=== PATIENT | female | born 1955 | race Caucasian/White ===

== ENCOUNTER → 2023-07-02 11:03 | Outpatient (REF) | payer OTHER, SELFPAY | LOC: HWRAD 11:03 | PROVIDERS: ATTENDING PHYSICIAN Internal Medicine | DX: Z78.0 Asymptomatic menopausal state (principal); Z12.39 Encounter for other screening for malignant neoplasm of breast; Z12.31 Encounter for screening mammogram for malignant neoplasm of breast | CPT/HCPCS: 77063; 77067; 77080 ==

== ENCOUNTER 2024-07-04 23:46 | Emergency (ER) | payer OTHER, SELFPAY ==
[2024-07-04 23:48] VITALS: BP 150/88
[2024-07-05 00:17] LABS: % Basophils 0.4 % (0-2); % Eosinophils 2.5 % (0-6); % Immature Granulocytes 0.9 % (0-0.5); % Lymphocytes 36.6 % (20.5-51.1); % Monocytes 7.7 % (1.7-9.3); % Neutrophils 51.9 % (42.2-75.2); Absolute Eosinophils 0.2 10^3/uL (0-0.7); Absolute Immature Granulocytes 0.1 10^3/uL (0-0.05); Absolute Lymphocytes 2.9 10^3/uL (1.2-3.4); Absolute Monocytes 0.6 10^3/uL (0.1-0.6); Absolute Neutrophils 4.1 10^3/uL (1.4-6.5); Hematocrit 35.2 % (37.0-47.0); Hemoglobin 12.2 g/dL (12.0-16.0); Mean Corp Hgb Conc. 34.7 g/dL (33.0-37.0); Mean Corpuscular Volume 92.4 fL (81.0-99.0); Nucleated Red Blood Cells % 0 %; Platelet Count 196 10^3/uL (130-400); Red Blood Cell Count 3.81 10^6/uL (4.20-5.40); Red Cell Dist. Width 11.5 % (11.5-14.5)
[2024-07-05 00:23] LABS: Urine Albumin Negative (Neg - Trace); Urine Bilirubin Negative (Negative); Urine Character Clear (Clear); Urine Color Yellow; Urine Glucose Negative (Negative); Urine Ketone Negative (Negative); Urine Leukocyte Negative (Negative); Urine Nitrite Negative (Negative); Urine Occult Blood Negative (Negative); Urine Urobilinogen Negative (Neg - 1+); Urine pH 6.5 (5.0-9.0)
[2024-07-05 00:28] LABS: ALT (SGPT) 19 U/L (0-35); AST (SGOT) 22 U/L (14-36); Albumin 4.3 g/dl (3.5-5.0); Alkaline Phosphatase 49 U/L (38-126); Blood Urea Nitrogen 18 mg/dl (7-17); Calcium 9.6 mg/dl (8.4-10.2); Carbon Dioxide 25 mmol/L (22-30); Chloride 102 mmol/L (98-107); Glucose 98 mg/dl (70-99); Lipase 155 U/L (23-300); Sodium 134 mmol/L (135-145); Total Bilirubin 0.4 mg/dl (0.2-1.3); Total Protein 7.2 g/dl (6.3-8.2); eGFR > 60.00
--- NOTE | 2024-07-05 00:59 | ED.GENMED ---
History of Present Illness
General
Chief Complaint: Flank Pain
Time Seen by Provider: 07/05/24 00:54
History of Present Illness
History of Present Illness:
68-year-old female presenting with left flank pain starting 07/02. Patient denies nausea, vomiting, diarrhea, abdominal pain, dysuria or hematuria. Patient denies history of kidney stones. Patient denies any recent falls/trauma/recent heavy
lifting. Patient states that she took Tylenol with some relief. Patient denies numbness, weakness or tingling
Phy Exam
Physical Exam
Physical Exam:
General: Alert, no acute distress
Head: NCAT
Eyes: clear conjunctiva
Neck: supple
Cardiac: regular rate and rhythm, no murmur
Lungs: clear to auscultation bilaterally. No wheezes, rales, or rhonchi. Speaking full unlabored sentences. No respiratory distress.
Abdomen: soft, nondistended nontender. No rebound or guarding. Left flank tenderness to palpation. No overlying rash. No right flank tenderness palpation.
MSK: no lower extremity edema bilaterally. No deformity
Skin: warm, dry
Neuro: Alert and oriented x3. 5 of 5 strength bilateral lower extremities.
Course
Orders/Labs/Results
Orders:
Orders
07/04/24 23:51
Complete Blood Count/With Diff Urgent
Comprehensive Metabolic Panel Urgent
Lipase Urgent
Urinalysis Reflex To Culture Urgent
Date Specimen was Collected: 07/04/24
Time Specimen was Collected: 23:51
07/05/24 00:58
Abdomen/Pelvis wo Contrast CT [CT Abd/pelvis Wo Iv Cont] Urgent
Comment:
Reason For Exam: left flank pain
Ketorolac [Toradol] 30 mg IM NOW STA
Abnormal Lab Results
07/05/24
00:01
RBC 3.81 L 10^6/uL
(4.20-5.40)
Hct 35.2 L %
(37.0-47.0)
MCH 32.0 H pg
(27.0-31.0)
Abs Immat Gran (auto) 0.1 H 10^3/uL
(0-0.05)
Immature Gran % 0.9 H %
(0-0.5)
Sodium 134 L mmol/L
(135-145)
BUN 18 H mg/dl
(7-17)
07/05/24 00:01
07/05/24 00:01
Vital Signs
Initial and Last Documented VS:
Initial Vital Signs
Temp Pulse Resp BP Pulse Ox
98.4 F 85 20 150/88 98
07/04/24 23:48 07/04/24 23:48 07/04/24 23:48 07/04/24 23:48 07/04/24 23:48
Last Documented Vital Signs
Temp Pulse Resp BP Pulse Ox
98.4 F 80 20 133/66 95
07/04/24 23:48 07/05/24 01:15 07/04/24 23:48 07/05/24 03:11 07/05/24 03:30
MDM/Problems Addressed
Differential Diagnosis Includes:
Kidney stone, UTI, muscular strain
MDM/Problems Addressed:
Results reviewed. UA negative for UTI or blood. Labs wnl.
CT abdomen pelvis shows no renal stones or hydronephrosis. No inflammatory changes surrounding the kidneys. Several phleboliths near the mid to distal ureter but appears separate. Gallbladder is decompressed with tiny stone. Normal pancreas.
Large stool burden. No bowel obstruction. Normal appendix. Fibroid uterus. No adnexal abnormality seen.
On reevaluation, patient reports improvement of her pain with Toradol. Patient resting comfortably in stretcher no acute distress. Discussed results with patient at bedside. ?Muscular strain. Stable for discharge with PCP follow-up.
*Critical Care Note
Total Time (30-74mins, 75-104mins- exclusive of procedures): Not Applicable
ED Attending Note
-
Portions of this chart may have been created with voice recognition software.� Occasional wrong word or��sound alike� substitutions may have occurred due to the inherent limitations of voice recognition software.
Discharge Plan
Departure
Patient Disposition: Home (Routine Discharge)
Date of Disposition: 07/05/24
Time of Disposition: 03:33
Patient with high blood pressure during this ER visit?: Yes
Discharge Problem:
Back pain
Instructions: Flank Pain (DC), BLOOD PRESSURE
Referrals:
Vikki Segal MD [Family Provider] -
Activity Restrictions/Additional Instructions:
Take Tylenol 976mg every 6 hours and/or ibuprofen 800mg every 8 hours with food as needed for pain
Follow-up with primary care doctor in 1 to 2 days
Return to the emergency department for burning with urination, fever, numbness, weakness, tingling or new/worsening symptoms
Interventions
Interventions:
*Risk Screen - Suicide Last Done: 07/04/24 23:48
*General Assessment Last Done: 07/04/24 23:48
*Neglect/Abuse Screening Last Done: 07/04/24 23:48
*ED- Fall Risk Assessment Last Done: 07/05/24 01:11
*ED COVID-19 Vaccine History Last Done: 07/05/24 01:11
MU-Mzmjqn-Osoascuvmo Assessment Last Done: 07/05/24 01:11
ED-Female Genitourinary Assessment Last Done: 07/05/24 01:11
Discharge Date and Time
Print Language: ARABIC
[2024-07-05 01:11] VITALS: BP 125/97; BMI 35.5
[2024-07-05] MEDS: TORADOL 30 MG IM (01:16)
[2024-07-05 03:11] VITALS: BP 133/66
== END 2024-07-05 03:51 | disposition home or self-care (01) ==
LOC: EMR 23:46
PROVIDERS: Emergency Medicine; EMERGENCY PHYSICIAN Emergency Medicine; FAMILY PHYSICIAN Internal Medicine
DX: M54.9 Dorsalgia, unspecified (principal); D25.9 Leiomyoma of uterus, unspecified
CPT/HCPCS: 96372; 99284; 74176; 80053; 81003; 83690; 85025

== ENCOUNTER → 2024-07-06 15:29 | Outpatient (REF) | payer OTHER, SELFPAY | LOC: HWRAD 15:29 | PROVIDERS: ATTENDING PHYSICIAN Internal Medicine | DX: R10.9 Unspecified abdominal pain (principal) | CPT/HCPCS: 72072; 72110 ==

== ENCOUNTER → 2024-07-20 10:09 | Outpatient (REF) | payer OTHER, SELFPAY | LOC: HWRAD 10:09 | PROVIDERS: ATTENDING PHYSICIAN Internal Medicine | DX: D25.9 Leiomyoma of uterus, unspecified (principal); R22.2 Localized swelling, mass and lump, trunk | CPT/HCPCS: 76705; 76830; 76856 ==